=== PATIENT | female | born 1985 ===

== ENCOUNTER 2020-11-18 09:34 | Inpatient (IN) | payer OTHER ==
--- NOTE | 2020-11-11 16:49 | History and Physical Report ---
History of Present Illness Date of examination: 11/11/20 Chief complaint: repeat c/s History of present illness: 35 yo at 39w1d c/b prior c/s x 1 (no NRFHTs), elevated 1hr GTT, nl 3hr GTT presenting for repeat c/s. Denies labor complaints or PIH symptoms. +FM. GBS unknown Past History Past Medical History: no pertinent history Past Surgical History: section (x1) Family/Genetic History: none Social history: no significant social history - Obstetrical History : 3 Para: 1 Hx # Term Pregnancies: 1 Spontaneous Abortions: 1 Number of Living Children: 1 Medications and Allergies Active Meds: Active Medications Famotidine (Famotidine 20 Mg/2 Ml Inj) 20 mg IV ONCE ONE Stop: 11/11/20 16:41 Metoclopramide HCl (Metoclopramide 10 Mg/2 Ml Inj) 10 mg IV ONCE ONE Stop: 11/11/20 16:41 Review of Systems All systems: negative (expect HPI) - Physical Exam Abdomen: Positive: normal appearance, normal bowel sounds (gravid) - Obstetrical FHR: category 1 Uterine Contraction Monitor Mode: External Uterine Contraction Pattern: Absent Results All other labs normal. Assessment and Plan - Patient Problems (1) H/O: Status: Acute Plan to address problem: To OR for repeat c section --Consented in the chart --Questions solicited and answered --Already getting Abx given GBS unknown
[2020-11-18] MEDS ORDERED: LACTATED RINGERS 2,000 ML ONE (09:54)
--- NOTE | 2020-11-18 09:57 | Anesthesia Day of Surgery ---
Anesthesia Day of Surgery - Day of Surgery Patient Examined: Yes Patient H&P Reviewed: Yes Patient is NPO: Yes Beta Blockers: No Cardiac Clearance: No Pulmonary Clearance: No Tank's Test: N/A
--- NOTE | 2020-11-18 10:09 | Anesthesia Consultation ---
Anesthesia Consult and Med Hx Date of service: 11/18/20 - Airway Anesthetic Teeth Evaluation: Good ROM Head & Neck: Adequate Mental/Hyoid Distance: Adequate Mallampati Class: Class II Intubation Access Assessment: Probably Good - Pulmonary Exam CTA: Yes - Cardiac Exam Cardiac Exam: RRR - Pre-Operative Health Status ASA Pre-Surgery Classification: ASA2 Proposed Anesthetic Plan: Spinal - Pre-Anesthesia Comment Pre-Anesthesia Comments: csection 2007 - Pulmonary Hx Smoking: No Hx Asthma: No Hx Respiratory Symptoms: No SOB: No COPD: No Home Oxygen Therapy: No Hx Pneumonia: No Hx Sleep Apnea: No - Cardiovascular System Hx Hypertension: No Hx Coronary Artery Disease: No Hx Heart Attack/AMI: No Hx Angina: No Hx Percutaneous Transluminal Coronary Angioplasty (PTCA): No Hx Cardia Arrhythmia: No Hx Pacemaker: No Hx Internal Defibrillator: No Hx Valvular Heart Disease: No Hx Heart Murmur: No Hx Peripheral Vascular Disease: No - Central Nervous System Hx Neuromuscular Disorder: No Hx Seizures: No CVA: No Hx Back Pain: No Hx Psychiatric Problems: No - Gastrointestinal Hx Ulcer: No Hx Gastroesophageal Reflux Disease: Yes - Endocrine Hx Renal Disease: No Hx End Stage Renal Disease: No Hx Cirrhosis: No Hx Liver Disease: No Hx Insulin Dependent Diabetes: No Hx Non-Insulin Dependent Diabetes: No Hx Thyroid Disease: No Hx Hypothyroidism: No Hx Hyperthyroidism: No - Hematic Hx Anemia: No Hx Sickle Cell Disease: No - Other Systems Hx Alcohol Use: No Hx Substance Use: No Hx Cancer: No Hx Obesity: Yes
[2020-11-18] MEDS: LACTATED RINGERS 1,000 ML IV SCH ×3 (10:30→18:41)
[2020-11-18 10:40] LABS: Basophils % (Auto) 0.3 % (0.0-1.8); Eosinophils # (Auto) 0.1 K/mm3 (0.0-0.4); Eosinophils % (Auto) 0.7 % (0.0-4.3); Hematocrit 32.1 % (30.3-42.9); Hemoglobin 10.7 gm/dl (10.1-14.3); Lymphocytes # (Auto) 2.7 K/mm3 (1.2-5.4); Lymphocytes % (Auto) 24.9 % (13.4-35.0); Mean Corpuscular HGB Conc 34 % (30-34); Mean Corpuscular Volume 81 fl (79-97); Monocytes # (Auto) 0.9 K/mm3 (0.0-0.8); Monocytes % (Auto) 8.7 % (0.0-7.3); Platelet Count 188 K/mm3 (140-440); Red Blood Count 3.98 M/mm3 (3.65-5.03); Red Cell Distribution Width 15.1 % (13.2-15.2)
[2020-11-18] MEDS ORDERED: BUTORPHANOL 2 MG/1 ML INJ IV PRN ×2 (10:46)
[2020-11-18] MEDS ORDERED: ePHEDrine SULFATE 50 MG/1 ML INJ IV PRN (10:46)
[2020-11-18] MEDS ORDERED: TERBUTALINE 1 MG/1 ML INJ SUB-Q PRN (10:46)
[2020-11-18] MEDS ORDERED: MINERAL OIL 30 ML ORAL LIQD PO PRN (10:46)
[2020-11-18] MEDS ORDERED: fentaNYL 100 MCG/2 ML INJ IV PRN (10:46)
[2020-11-18] MEDS ORDERED: AMPICILLIN/NS 2 GM/100 ML 2 GM/100 ML BAG IV ONE (11:00)
[2020-11-18] MEDS ORDERED: FAMOTIDINE 20 MG/2 ML INJ IV SCH (11:00)
[2020-11-18] MEDS ORDERED: BICITRA ORAL LIQD 30ML PO SCH (11:00)
[2020-11-18] MEDS ORDERED: ONDANSETRON 4 MG/2 ML INJ IV PRN ×2 (11:00→12:58)
[2020-11-18] MEDS ORDERED: NALOXONE 0.4 MG/1 ML INJ IV PRN ×2 (11:00→12:58)
[2020-11-18] MEDS ORDERED: HYDROmorphone 1 MG/1 ML INJ IV PRN (11:00)
[2020-11-18] MEDS ORDERED: METOCLOPRAMIDE 10 MG/2 ML INJ IV SCH (11:00)
[2020-11-18] MEDS ORDERED: ceFAZolin/Water 2 GM/20 ML 2 GM/20 ML SYRINGE IV NR (11:00)
[2020-11-18] MEDS ORDERED: OXYTOCIN DRIP 30 UNITS/500 ML BAG IV SCH ×4 (11:00→13:00)
[2020-11-18] MEDS ORDERED: LIDOCAINE (2%) 20 MG/1 ML VIAL 20 ML MDV INFILTRATI ONE (11:46)
[2020-11-18] MEDS ORDERED: PHENYLEPHRINE/NS 1,000 MCG/10 ML SYRINGE (OR USE) IV ONE ×2 (11:49→12:07)
[2020-11-18] MEDS ORDERED: ceFAZolin/STERILE WATER 2 GM/20 ML SYRINGE IV ONE (11:59)
[2020-11-18] MEDS: KETOROLAC 30 MG/1 ML INJ IV SCH ×2 (12:00→22:11)
[2020-11-18] MEDS ORDERED: SODIUM CHLORIDE 0.9% IRR 1,500 ML BOTTLE IR ONE (12:19)
[2020-11-18] MEDS ORDERED: WATER FOR IRRIG STERILE 1,500 ML BOTTLE IR ONE (12:19)
[2020-11-18] MEDS ORDERED: KETOROLAC 30 MG/1 ML INJ ONE (12:36)
[2020-11-18] MEDS ORDERED: MORPHINE 4 MG/1 ML INJ IV PRN (12:58)
[2020-11-18] MEDS ORDERED: ACETAMINOPHEN 325 MG TAB PO PRN (12:58)
[2020-11-18] MEDS ORDERED: MAGNESIUM HYDROXIDE (MOM) ORAL LIQD UDC PO PRN (12:58)
[2020-11-18] MEDS ORDERED: SIMETHICONE 80 MG CHEW TAB PO PRN (12:58)
[2020-11-18] MEDS ORDERED: oxyCODONE /ACETAMINOPHEN 5-325MG TAB PO PRN (12:58)
[2020-11-18] MEDS ORDERED: SENNOSIDES 8.6 MG TAB PO PRN (12:58)
[2020-11-18] MEDS ORDERED: HYDROCORTISONE 25 MG RECTAL SUPP PR PRN (12:58)
[2020-11-18] MEDS ORDERED: PROMETHAZINE 25 MG RECT SUPP PR PRN (12:58)
[2020-11-18] MEDS ORDERED: LANOLIN/ZINC/DIMETHICONE (LANSINOH) 7 GM TP PRN (12:58)
[2020-11-18] MEDS ORDERED: WITCH HAZEL/ GLYCERIN PAD TP PRN (12:58)
--- NOTE | 2020-11-18 13:02 | Procedure Note ---
OB Delivery Note - Delivery Date of Delivery: 11/18/20 Surgeon: JOSE DE JESUS PANCHAL JR Estimated blood loss: other (600cc) - Section Preop diagnosis: repeat Postop diagnosis: same section procedure: section, repeat low transverse Disposition: PACU Complications: none Narrative: Indication: 35 yo at 39w1d c/b prior c/s x 1 (no NRFHTs), elevated 1hr GTT, nl 3hr GTT presenting for repeat c/s Findings: Normal uterus, tubes and ovaries. Clear fluid. No nuchal cord. Delivery of female at 1211 Weight 3008g APGARS 8/9 EBL 600cc IVF 50cc UOP IVF Procedure: Patient was taken to the operating room prepped and draped in the usual sterile fashion. Pfannenstiel skin incision was made and carried down to the underlying fascia. Fascia was incised and the incision was distended bilaterally. Rectus fascia was dissected off the rectus muscle superiorly and inferiorly. Peritoneum was identified and entered. Peritoneal incision extended superiorly and inferiorly. The bladder was visualized. The bladder blade was placed. Uterine hysterotomy incision was made and extended bilaterally. The baby was delivered in the typical vertex fashion. Baby was bulb suction at delivery. The cord was cut and clamped and handed off to the team. The placenta was delivered spontaneously. The uterus was exteriorized and cleared of all clots and debris. Uterine incision was closed with a 0 Vicryl in a running locked fashion. Good hemostasis was noted after imbrication at the hysterotomy with 0 vicyrl x 1. Hemoblast was applied to the uterine incisional base to provide hemostasis. The urine was noted to be clear. Uterus, tubes, and ovaries were returned to the abdominal cavity. Bilateral gutters were cleared and the abdomen and pelvis were irrigated. Good hemostasis noted. The rectus muscle was reapproximated with 2-0 Vicryl. Attention was directed towards the rectus fascia which was reapproximated with 0 PDS in a running fashion. The subcutaneous tissue was irrigated and reapproximated with 2-0 Vicryl in a running fashion. Skin was closed with a 4-0 Vicryl in a subcuticular fashion. The procedure was completed and the patient tolerated the procedure well. All instruments and lap counts were correct x2. - A at 1 minute: 8 at 5 minutes: 9 Gender: Female
--- NOTE | 2020-11-18 13:20 | Progress Note ---
Spinal Anesthesia Block - Spinal Anesthesia Block Start Time: 11:41 Stop Time: 11:45 Performed by:: SEBASTIAN GARVEY Procedure: Patient IDed, H&P reviewed, all questions and concerns were answered, and consent was signed. Timeout was performed at bedside. Patient in sitting position. Sterile prep and drape was performed. [3] ml of 1% lidocaine skin wheal at L[4]- L [5]. Needle introducer advanced. 25 gauge spinal needle advanced. Clear, free flowing CSF. negative blood, negative paresthesia. Spinal dose given. All needles removed. Patient tolerated procedure.
[2020-11-18] MEDS ORDERED: BUPIVACAINE/PF (0.5%) 5 MG/1 ML 30 ML VIAL INFILTRATI ONE (13:21)
[2020-11-18] MEDS ORDERED: dexAMETHasone 20 MG/5 ML VIAL ONE (13:21)
[2020-11-18] MEDS ORDERED: SODIUM CHLORIDE 0.9% 100 ML ONE (13:23)
--- NOTE | 2020-11-18 13:29 | Progress Note ---
Objective - Constitutional Vitals: Vital Signs - 12hr 11/18/20 11/18/20 11/18/20 10:50 10:52 10:53 Temperature 98.1 F Pulse Rate 73 78 Respiratory 20 Rate Blood Pressure 117/65 O2 Sat by Pulse 98 Oximetry - Labs CBC & Chem 7: 11/18/20 09:50 Labs: Abnormal lab results 11/18/20 Range/Units 09:50 MCH 27 L (28-32) pg [place] % (Auto) 8.7 H (0.0-7.3) % [place] # (Auto) 0.9 H (0.0-0.8) K/mm3 Regional Anesthesia Block - Regional Anesthesia Block Start Time: 13:30 Stop Time: 13:35 Performed By:: SEBASTIAN GARVEY Procedure: Patient consented for TAP block for post surgical pain management. Patient identified, monitors placed, and time out performed. TAP identified bilaterally via ultrasound. Skin prepped bilaterally with [chlorhexidine] and [22g stimuplex] needle advanced to the TAP. [Marcaine 0.22% 35ml] injected under ultrasound guidance on the [left] side. [Marcaine 0.22% 35ml] injected under ultrasound guidance on the [right] side. Negative aspiration every 5mL, No change in heart rate or rhythm. Patient tolerated the procedure well. No apparent complications seen.
[2020-11-18] MEDS ORDERED: D5W/LACTATED RINGERS 1,000 ML IV SCH (14:00)
[2020-11-18] MEDS ORDERED: AMPICILLIN/NS 1 GM/50 ML 1 GM/50 ML BAG IV SCH (14:48)
[2020-11-19 01:06] LABS: Hematocrit 29.7 % (30.3-42.9); Hemoglobin 9.8 gm/dl (10.1-14.3)
[2020-11-19] MEDS: oxyCODONE /ACETAMINOPHEN 5-325MG TAB PO PRN ×2 (10:35→21:20)
--- NOTE | 2020-11-19 11:51 | Post Anesthesia Evaluation ---
- Post Anesthesia Evaluation Patient Participated: Yes Airway Patent: Yes Stable Respiratory Function: Yes Nausea/Vomiting: No Temp > 96.8F: Yes Pain Manageable: Yes Adequeate Hydration: Yes Anesthesia Complications: No Block Receding Appropriately: Yes Patient on Ventilator: No
--- NOTE | 2020-11-19 12:59 | Progress Note ---
Assessment and Plan A: day 1 S/P repeat LTCS. Anemia. P: Supplement with iron. Mylicon every 6 hours scheduled. Patient to ambulate in farias and drink warm liquids. Subjective - Subjective Date of service: 11/19/20 Principal diagnosis: day 1 S/P repeat LTCS Interval history: Reports gas pain; is passing gas; advised patient ambulate in the halls, drink warm liquids. Mylicon ordered on a scheduled basis. Patient reports: appetite normal, voiding normally, flatus, ambulating normally, no dizzy ambulation, no nauseated [place]: doing well Objective - Vital Signs Latest vital signs: Vital Signs Temp Pulse Resp BP BP Pulse Ox 11/19/20 08:37 97.4 F L 69 18 109/64 97 11/19/20 04:55 97.5 F L 66 20 95/50 95 11/19/20 02:58 20 11/19/20 01:46 97.3 F L 60 18 98/59 99 11/18/20 22:11 18 11/18/20 21:44 97.5 F L 65 16 97/52 99 11/18/20 18:30 18 11/18/20 15:54 97.4 F L 98 H 18 99/48 99 11/18/20 15:00 97.4 F L 66 18 112/68 100 11/18/20 14:30 62 16 107/67 99 11/18/20 14:00 69 14 95/45 99 11/18/20 13:45 66 16 89/43 99 11/18/20 13:40 72 15 81/44 99 11/18/20 13:30 75 17 90/39 99 11/18/20 13:15 63 16 91/51 99 11/18/20 13:10 97.3 F L 75 14 89/34 99 Intake and Output 11/18/20 11/19/20 11/19/20 23:59 07:59 15:59 Intake Total 900 720 Output Total 1700 1500 Balance -800 -780 Intake: Oral 420 Intake, Free Water 480 720 Output: Urine 1700 1500 Indwelling Catheter 1700 900 Void 600 Other: Total, Intake Amount 420 Total, Output Amount 1100 400 - Exam Cardiovascular: Present: Regular rate Lungs: Present: Clear to auscultation Abdomen: Present: normal appearance, soft, normal bowel sounds. Absent: distention, tenderness, guarding, rigidity Uterus: Present: normal, firm, fundal height below umbilicus. Absent: bogginess, tenderness Extremities: Absent: tenderness Incision: Present: normal, dry, dressed - Labs Labs: Abnormal lab results 11/19/20 Range/Units 00:41 Hgb 9.8 L (10.1-14.3) gm/dl Hct 29.7 L (30.3-42.9) %
[2020-11-19] MEDS: SIMETHICONE 80 MG CHEW TAB PO SCH (21:25)
[2020-11-19] MEDS: DOCUSATE SODIUM 100 MG CAP PO SCH (21:25)
[2020-11-20] MEDS: IBUPROFEN 800 MG TAB PO PRN ×3 (02:40→19:25)
[2020-11-20] MEDS: SIMETHICONE 80 MG CHEW TAB PO SCH ×4 (02:43→21:58)
[2020-11-20] MEDS: oxyCODONE /ACETAMINOPHEN 5-325MG TAB PO PRN ×2 (06:30→16:23)
--- NOTE | 2020-11-20 06:46 | Progress Note ---
Assessment and Plan A: /postop day 2 S/P repeat LTCS. Anemia. P: Continue oral iron supplementation. Anticipate discharge home this evening or tomorrow morning. Continue ambulation Subjective - Subjective Date of service: 11/20/20 Principal diagnosis: day 2 S/P repeat LTCS Interval history: Passing gas better now; states gas pain is resolving. Patient reports: appetite normal, voiding normally, pain well controlled, flatus, ambulating normally, no dizzy ambulation, no nauseated : doing well Objective - Vital Signs Latest vital signs: Vital Signs Temp Pulse Resp BP Pulse Ox 11/19/20 17:36 97.8 F 77 18 109/65 98 11/19/20 08:37 97.4 F L 69 18 109/64 97 Intake and Output 11/19/20 11/19/20 11/20/20 15:59 23:59 07:59 Intake Total 240 Output Total 400 Balance -400 240 Intake: Oral 240 Output: Urine 400 Void 400 Other: Total, Intake Amount 240 Total, Output Amount 400 # Voids Void 1 1 - Exam Cardiovascular: Present: Regular rate Lungs: Present: Clear to auscultation Abdomen: Present: normal appearance, soft, normal bowel sounds. Absent: distention, tenderness, guarding, rigidity Uterus: Present: normal, firm, fundal height below umbilicus. Absent: bogginess, tenderness Extremities: Present: normal. Absent: tenderness Incision: Present: normal, dry, intact
[2020-11-20] MEDS: FERROUS SULFATE 325 MG TAB PO SCH (10:45)
[2020-11-20] MEDS: DOCUSATE SODIUM 100 MG CAP PO SCH ×3 (10:45→22:20)
[2020-11-21] MEDS: oxyCODONE /ACETAMINOPHEN 5-325MG TAB PO PRN (01:05)
[2020-11-21] MEDS: SIMETHICONE 80 MG CHEW TAB PO SCH ×2 (02:34→10:36)
[2020-11-21] MEDS: IBUPROFEN 800 MG TAB PO PRN (08:56)
--- NOTE | 2020-11-21 09:37 | Progress Note ---
Assessment and Plan A: /postop day 3 S/P repeat LTCS. Anemia. P: Discharge patient home today. Discussed with patient /postop discharge instructions and warning signs. Advised patient to continue taking her vitamins and iron supplements at home. Advised patient re: care of incision and activity restrictions. Advised patient to avoid intercourse, lifting, housework, stair climbing, driving. Advised patient to follow up at [facility] in 1 week. Patient voiced understanding of all instructions. Subjective - Subjective Date of service: 11/21/20 Principal diagnosis: day 3 S/P repeat LTCS Interval history: No complaints. Patient requests discharge home today. Patient reports: appetite normal, voiding normally, pain well controlled, flatus, ambulating normally, no dizzy ambulation, no nauseated [place]: doing well Objective - Vital Signs Latest vital signs: Vital Signs Temp Pulse Resp BP Pulse Ox 11/21/20 08:19 98.0 F 73 20 120/73 98 11/21/20 01:05 18 11/20/20 23:59 98.2 F 89 20 123/67 99 11/20/20 19:25 18 11/20/20 17:02 98.5 F 71 18 123/72 100 Intake and Output 11/20/20 11/21/20 11/21/20 23:59 07:59 15:59 Intake Total 1440 240 240 Balance 1440 240 240 Intake: Oral 720 240 240 Intake, Free Water 720 Other: Total, Intake Amount 240 240 240 # Voids Void 1 1 1 - Exam Cardiovascular: Present: Regular rate Lungs: Present: Clear to auscultation Abdomen: Present: normal appearance, soft, normal bowel sounds. Absent: distention, tenderness, guarding, rigidity Uterus: Present: normal, firm, fundal height below umbilicus. Absent: bogginess, tenderness Extremities: Present: normal. Absent: tenderness Incision: Present: normal, dry, intact
--- NOTE | 2020-11-21 09:40 | Discharge Summary ---
Providers - Providers Date of Admission: 11/18/20 09:34 Date of discharge: 11/21/20 Attending physician: JOSE DE JESUS PANCHAL JR, MD Primary care physician: JOSE DE JESUS PANCHAL JR, MD Hospitalization Reason for admission: section Delivery: Procedure: repeat low transverse Incision: normal, dry, intact Other procedures: none complications: none Discharge diagnosis: IUP at term delivered baby: female Pertinent studies: Labs Hospital course: Normal course. Condition at discharge: Good Disposition: DC-01 TO HOME OR SELFCARE - Discharge Diagnoses (1) Term delivered Status: Acute (2) Anemia Status: Acute Plan - Discharge Medications Prescriptions: Ibuprofen [Motrin 800 MG tab] 800 mg PO Q6H PRN #30 tablet PRN Reason: Pain, Mild (1-3) oxyCODONE /ACETAMINOPHEN [Percocet 5/325 mg] 1 tab PO Q6H PRN #30 tablet PRN Reason: Pain, Moderate (4-6) - Provider Discharge Summary Activity: routine, no sex for 6 weeks, no heavy lifting 4 weeks, no strenuous exercise Diet: routine Instructions: routine Additional instructions: Continue taking your vitamins and iron supplements at home. Call your doctor immediately for: * Fever > 100.5 * Heavy vaginal bleeding ( >1 pad per hour) * Severe persistent headache * Shortness of breath * Reddened, hot, painful area to leg or breast * Drainage or odor from incision. * Keep incision clean and dry at all times and follow doctor's instructions regarding bathing/showering - Follow up plan Follow up: JOSE DE JESUS PANCHAL JR, MD [Primary Care Provider] - 7 Days Forms: [facility] Discharge Summary
[2020-11-21] MEDS: DOCUSATE SODIUM 100 MG CAP PO SCH (10:36)
[2020-11-21] MEDS: FERROUS SULFATE 325 MG TAB PO SCH (10:36)
[2020-11-21 11:21] VITALS: BP 113/69
== END 2020-11-21 12:50 | disposition home or self-care (01) | DRG 788 ==
LOC: APU 09:34 → OB 15:10
PROVIDERS: ADMIT Obstetrics & Gynecology; ATTEND Obstetrics & Gynecology
PROC: 10D00Z1 Extraction of Products of Conception, Low, Open Approach (ICD-10-PCS; principal; 2020-11-18)
DX: O34.219 Maternal care for unspecified type scar from previous cesarean delivery (principal); O99.214 Obesity complicating childbirth; Z3A.39 39 weeks gestation of pregnancy; Z37.0 Single live birth; O90.81 Anemia of the puerperium
CPT/HCPCS: 36415; 59025; 85014; 85018; 85025; 86850; 86900; 86901; 96360; 96361; G0378; J0690; J1100; J1885; J2270; J2370; J2765; J3490; J7120; U0003